=== PATIENT | female | born 1980 | race Caucasian/White ===

== ENCOUNTER → 2018-06-13 13:55 | Outpatient (CLI) | payer OTHER, MEDICAID, SELFPAY ==
--- NOTE | 2018-06-13 14:01 | DI.MRI.S_ITS ---
PROCEDURE: MR KNEE RT WO CON INDICATIONS: Right knee pain, instability TECHNIQUE: Noncontrast sagittal PD fast spin echo and T2 fast spin echo with fat saturation, sagittal 3-D FLASH with fat saturation; coronal T1 spin echo and PD fast spin echo with fat saturation, and axial PD fast spin echo with fat saturation through the knee. COMPARISON: None. FINDINGS: Image quality: Excellent. Menisci: Medial meniscus is intact. There is linear horizontal high T2 signal intensity traversing the posterior horn medial meniscus, demonstrating superior articular surface extension, indicating portal vein. There is radial tearing of the free edge of the lateral meniscal body. Cruciate ligaments: There is minimal posterior bowing of the anterior cruciate ligament, which demonstrates mild signal loss. The posterior cruciate ligament is intact. Medial structures: The medial collateral ligament appears intact. The posterior oblique ligament, semimembranosus tendon insertions, oblique popliteal ligament, and meniscocapsular junction appear intact. Visualized portions of the pes anserinus tendons appear normal. No abnormal bursal fluid. Lateral structures: The lateral collateral ligament, long and short heads of the biceps femoris tendon appear intact. The popliteus tendon appears normal; the popliteofibular ligament appears intact. The posterosuperior and anteroinferior popliteomeniscal fascicles appear intact. The arcuate and fabellofibular ligaments appear intact, on either side of the lateral inferior geniculate artery. Iliotibial band appears normal. Anterior structures: The quadriceps and patellar tendons appear intact. Patellar alignment is normal. No femoral trochlear dysplasia or ventral trochlear prominence. No edema in the infrapatellar fat pad. Bones and cartilage: No bone marrow contusions or fractures. Mild diffuse articular cartilage loss overlies the weightbearing aspects of the medial femoral condyle and medial tibial plateau. Joint space: There is a small knee joint effusion. No Hinson's cyst. Normal appearing synovial plicae are incidentally noted. IMPRESSION: 1. Lateral meniscal tearing. 2. Medial compartment articular cartilage loss. 3. Low-grade partial-thickness anterior cruciate ligament tear. 4. Small knee joint effusion. Dictated by: Una Munson M.D. on 06/13/2018 at 13:46 Approved by: Una Munson M.D. on 06/13/2018 at 13:48
== END ==
PROVIDERS: Visit Provider Physician Assistant
DX: S83.281A Other tear of lateral meniscus, current injury, right knee, initial encounter (principal); S83.511A Sprain of anterior cruciate ligament of right knee, initial encounter; M25.461 Effusion, right knee; M25.561 Pain in right knee
CPT/HCPCS: 73721

== ENCOUNTER → 2018-06-17 13:11 | Outpatient (CLI) | payer OTHER, MEDICAID, SELFPAY | PROVIDERS: Visit Provider Family Medicine | DX: N60.09 Solitary cyst of unspecified breast (principal) | CPT/HCPCS: 87070; 87205 ==

== ENCOUNTER 2018-06-30 07:59 | Day surgery (SDC) | payer OTHER, MEDICAID, SELFPAY ==
[2018-06-29 14:34] VITALS: BMI 25.0
[2018-06-30] VITALS (7 sets, daily range): BP systolic 114–137; BP diastolic 78–93; PULSE 60–91; RESP 12–21; TEMP 36.3–36.6; O2SAT 93–100; BMI 25.0
--- NOTE | 2018-06-30 | PATH_ITS ---
[facility] Accession Number: [id number] . 01 Material submitted: . PART A: LESION MID CHEST PART B: RIGHT BREAST MASS WITH ABCESS . 02 Diagnosis: A. Skin, Lesion Mid Chest, Biopsy: Epidermoid inclusion cyst. . B. Right Breast, Mass with Abscess, Excision: Ruptured epidermoid inclusion cyst with abscess. Adjacent breast tissue with fibrocystic changes. No evidence of atypical hyperplasia, in situ, or invasive carcinoma. MRV/07/04/2018 . 02 Electronically signed: . Yennifer Barajas MD, Pathologist NPI- [id number] . 01 Gross description: . A. Received in formalin, labeled lesion, mid chest, is an unoriented ellipse of brown, smooth, shiny skin (2.1 x 1.2 x 0.6 cm) containing an irregularly firm area (0.8 x 0.8 x 0.5 cm) located 0.1 cm from the peripheral resection margin and 0.5 cm from the closest tip. The resection margin is inked black. The tips are submitted in cassette A1 and the remaining ellipse is serially sectioned into four slices and entirely submitted in cassette A2. B. Received in formalin, labeled right breast mass w/abscess, is an unoriented ellipse of casarez-white, smooth, shiny skin with underlying tissue (2.8 x 1.2 x 1.2 cm) and a piece of ramesh-white and casarez-yellow, fibrous and fatty tissue (2.7 x 2.2 x 1.6 cm). The skin is focally pale, firm and puckered. The underlying tissue is densely fibrous with an apparent empty cavity. The separate piece of tissue also contains an empty apparent cavity (2.5 x 1.5 x 1.2 cm). The underlying tissue and separate piece of tissue have densely fibrous cut surfaces. The resection margins are inked black. The skin is serially sectioned and entirely submitted in cassettes B1-B2, and the separate tissue is serially sectioned and entirely submitted in cassettes B3-B5. Note: Approximate total fixation time in formalin - 64 hours and 30 minutes, calculated using a collection date of 06/30/2018 with no collection time given. ([id number]) . . . . . . /OZO . 02 Pathologist provided ICD-10: L72.0 . 02 CPT . 908739, [id number] Performed at: 01 [facility] [address] [place] [address], [place], [place] [id number] MD Brandon Crow MD Phone: [phone] Performed at: 02 [facility] [address] [place], [place] [id number] MD Matt Beltre MD Phone: [phone]
[2018-06-30] MEDS: CEFAZOLIN 2 GM/100 ML FROZ.PIGGY IV (09:02)
--- NOTE | 2018-06-30 09:02 | PM.PREOP ---
Pre-operative Note Interval Note Pre-op Check: Yes History & Physical Reviewed by Physician and Yes Exam Performed Changes: No
--- NOTE | 2018-06-30 09:18 | SUR.OPER ---
Supine on padded OR bed, head on pillow, arms secured on padded arm boards at <90 degrees abduction, legs uncrossed, safety belt at thigh, tape over blanket over lower legs.
[2018-06-30] MEDS: BUPIVACAINE 0.5% (PF) VIAL 30 ML INJ (09:52)
--- NOTE | 2018-06-30 10:27 | P.OP_ITS ---
Operative Date/Time/Diagnoses Date of procedure: 06/30/18 Time of procedure: 10:25 Pre-op diagnosis: Right breast mass. Cystic lesion of the anterior chest wall involving skin and subcutaneous tissue Post-op diagnosis: same (Mass was then infected cavity the wall of which I removed. A Adeola drain was left in place which will be removed tomorrow in the office) Procedure & Clinicians Procedure: Excision of 2 x 2 cm mass of the chest wall and lumpectomy of right breast mass which turned out to be an abscess cavity Same procedure as scheduled: Yes Indications: Mass right breast suspected to be benign and lesion of the skin and subcutaneous tissue of the chest wall Surgeon: Bacilio Curry Click Yes if Unassisted: Yes Anesthesia Type: General Operative Notes Findings: Abscess cavity of the right breast. Lesion of chest wall involving skin and subcutaneous fat. Closure Type: primary (Chest wall lesion. Partial closure of breast incision) Specimen(s): other (Skin lesion of the chest and abscess cavity of the breast) Implants & Drains: Adeola placed in the breast abscess cavity Estimated Blood Loss (mL): 25 Blood products transfused: none Procedure in detail: The patient is placed supine on the operating room table and underwent general LMA anesthesia. Elliptical incision was made around the lesion in the mid chest wall. This was a transverse incision. Lesion was excised in its entirety. The subcu was closed with interrupted 3 0 Polysorb and the skin was closed running for Polysorb subcuticular stitch. Attention was turned to the mass in the right breast. Different instrumentation was used. Gloves were changed. An ellipse was made transversely to incorporate a self- inflicted incision and drainage site as well as the mass. This required removing a portion of the nipple-areolar complex and the skin involving it. Incision was carried into the breast tissue and I entered an abscess cavity. The pus was cultured. Using sharp dissection the entire abscess wall was excised. The wound was copiously irrigated. Hemostasis was achieved. 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 I made attempt to elevate this somewhat with my closure. I placed a Adeola drain into the depths of the abscess cavity and brought it out through the incision. Using biosyn 4-0 I partially closed the cavity and subcu tissues and then using interrupted 5 0 nylon loosely reapproximated the skin with interrupted sutures. I also placed a stitch in the drain to prevent it from going down into the wound. A Steri-Strip was applied with Mastisol to the skin lesion and a bulky gauze dressing was placed over the breast mass. After placing dressings the drapes were removed and the patient was awakened extubated taken recovery area in good condition. She will be placed on oral Keflex along with pain medication and dear tomorrow in my office to remove her drain. Complications: none Condition: stable Disposition: PACU Plan for aftercare: Follow-up tomorrow at 4:00 p.m. in my office
--- NOTE | 2018-06-30 10:48 | SUR.PHASEII ---
PT TRANSFERED TO PHASE II IN STABLE CONDITION, VSS. PT SITTING UP, ALERT AND TALKING TO RN. DRSG'S ON SURGICAL SITES OBSERVED TO BE C/D/I. PT DENIES ANY PAIN/DISCOMFORT OR NAUSEA. PT AWAITING RETURN OF SISTER FROM GETTING RX FILLED. BED IN LOWEST POSITION AND CALL LIGHT GIVEN TO PT. PT APPEARS COMFORTABLE AT THIS TIME.
== END 2018-06-30 11:18 | disposition home or self-care (01) ==
PROVIDERS: PCP Family Medicine; Visit Provider Specialist
PROC: (CPT 19301; principal; 2018-06-30 08:45)
DX: L72.0 Epidermal cyst (principal); N61.1 Abscess of the breast and nipple; F17.210 Nicotine dependence, cigarettes, uncomplicated
CPT/HCPCS: 19120; 21552; 87070; 87075; 87205; 88304; J0690; J1100; J1885; J2250; J2405; J2704; J3010